=== PATIENT | male | born 1945 | race African-American/Black ===

== ENCOUNTER 2018-11-01 08:25 | Inpatient (IN) ==
[2018-10-29 17:00] LABS: Basophils % 0.2 % (0.0-0.8); Eosinophils % 0.2 % (0.00-10.9); Hematocrit 27.3 VOL% (42.0-52.0); Hemoglobin 8.5 GM/DL (14.0-18.0); Immature Granulocytes % 0.6 %; Immature Granulocytes Absolute 0.07 #; Lymphocytes # 0.6 10*3/uL (1.4-4.0); Lymphocytes % 5.3 % (21.2-54.2); Mean Corpuscular HGB Conc 31.1 GM/DL (32-36); Mean Corpuscular Volume 91.9 FL (87-102); Monocytes % 6.1 % (1.7-12.7); Neutrophils % 87.6 % (38.7-73.9); Platelet Count 224 T/CUMM (130-400); Red Blood Count 2.97 MC/CUMM (3.8-5.5); Red Cell Distribution Width 14.2 % (9.3-17.3); White Blood Count 11.5 T/CUMM (4-12)
[2018-10-29 17:16] LABS: Albumin 2.6 G/DL (3.4-5.0); Bilirubin,Total 0.4 MG/DL (0.2-1.0); Total Protein 7.5 G/DL (6.4-8.3)
[~2018-11-01 08:25] MED LIST: LACTATED RINGERS 1,000 ML IV SCH; ceFAZolin 2,000 MG in SYRINGE 1 EACH IV ONE
[2018-11-01] MEDS ORDERED: ROPIVACAINE 0.5% 30 ML VIAL ONE (10:30)
[2018-11-01] MEDS ORDERED: VANCOMYCIN 500 MG VIAL ONE (10:34)
[2018-11-01] MEDS ORDERED: fentaNYL 100 MCG/2 ML VIAL ONE (11:48)
[2018-11-01] MEDS ORDERED: LIDOCAINE MPF 2% /EPI 20 ML VIAL ONE (11:49)
[2018-11-01] MEDS ORDERED: diphenhydrAMINE CAP 25 MG CAPSULE PO PRN (12:07)
[2018-11-01] MEDS ORDERED: diphenhydrAMINE 50 MG/1 ML VIAL IV PRN (12:07)
[2018-11-01] MEDS ORDERED: ONDANSETRON 4 MG/2 ML VIAL IV PRN (12:07)
[2018-11-01] MEDS ORDERED: DEXTROSE 50% 25 GM/50 ML VIAL IV PRN (13:15)
[2018-11-01] MEDS ORDERED: GLUCAGON 1 MG VIAL IM PRN (13:15)
[2018-11-01] MEDS ORDERED: BISACODYL 5 MG TABLET PO PRN (13:15)
[2018-11-01] MEDS ORDERED: CARBOXYMETHYLCELLULOSE 1% OPH SOLN BOTH EYES PRN (13:22)
[2018-11-01] MEDS ORDERED: MIDAZOLAM 2 MG/2 ML VIAL ONE (13:33)
[2018-11-01] MEDS ORDERED: DEXTROSE 5% NACL 0.9% 500 ML IV SCH (14:00)
[2018-11-01] MEDS: hydrALAZINE 25 MG TABLET PO SCH ×2 (15:29→20:54)
[2018-11-01] MEDS: INSULIN LISPRO 100 UNIT/ML SUBCUT SCH (16:36)
[2018-11-01] MEDS: METOPROLOL TARTRATE 100 MG TABLET PO SCH (16:37)
[2018-11-01 18:21] LABS: Basophils % 0.2 % (0.0-0.8); Eosinophils % 0.4 % (0.00-10.9); Hematocrit 22.3 VOL% (42.0-52.0); Hemoglobin 7.1 GM/DL (14.0-18.0); Immature Granulocytes % 0.5 %; Immature Granulocytes Absolute 0.05 #; Lymphocytes # 0.8 10*3/uL (1.4-4.0); Lymphocytes % 8.5 % (21.2-54.2); Mean Corpuscular HGB Conc 31.8 GM/DL (32-36); Mean Corpuscular Volume 90.3 FL (87-102); Mean Platelet Volume 9.3 FL (9.6-12.0); Monocytes % 7.2 % (1.7-12.7); Neutrophils % 83.2 % (38.7-73.9); Platelet Count 193 T/CUMM (130-400); Red Blood Count 2.47 MC/CUMM (3.8-5.5); Red Cell Distribution Width 14.1 % (9.3-17.3); White Blood Count 9.4 T/CUMM (4-12)
[2018-11-01] MEDS: INSULIN GLARGINE 100 UNIT/ML SUBCUT SCH (20:26)
[2018-11-01] MEDS: glipiZIDE 10 MG TABLET PO SCH (20:26)
[2018-11-01] MEDS: EZETIMIBE 10 MG TABLET PO SCH (20:54)
[2018-11-01] MEDS: GABAPENTIN 300 MG CAPSULE PO SCH (20:55)
[2018-11-01] MEDS: ASPIRIN EC 81 MG TABLET PO SCH (20:55)
[2018-11-01] MEDS: SIMVASTATIN 20 MG TABLET PO SCH (20:55)
[2018-11-02] MEDS: fentaNYL 2 MCG/ROPIV 0.2% EPID 100 ML EPIDURAL SCH ×3 (00:30→16:15)
[2018-11-02 05:48] LABS: Basophils % 0.2 % (0.0-0.8); Eosinophils # 0.1 10*3/uL (0.0-0.87); Eosinophils % 0.6 % (0.00-10.9); Hematocrit 21.3 VOL% (42.0-52.0); Hemoglobin 6.5 GM/DL (14.0-18.0); Immature Granulocytes % 1.1 %; Lymphocytes # 0.5 10*3/uL (1.4-4.0); Lymphocytes % 5.4 % (21.2-54.2); Mean Corpuscular HGB Conc 30.5 GM/DL (32-36); Mean Corpuscular Volume 91.8 FL (87-102); Mean Platelet Volume 9.2 FL (9.6-12.0); Monocytes % 9.1 % (1.7-12.7); Neutrophils % 83.6 % (38.7-73.9); Platelet Count 164 T/CUMM (130-400); Red Blood Count 2.32 MC/CUMM (3.8-5.5); Red Cell Distribution Width 14.3 % (9.3-17.3); White Blood Count 9.3 T/CUMM (4-12)
[2018-11-02] MEDS: LEVOTHYROXINE 50 MCG TABLET PO SCH (06:04)
[2018-11-02] MEDS: ACETAMINOPHEN 325 MG TABLET PO PRN ×2 (06:04→23:35)
[2018-11-02 06:11] LABS: Osmolality,Calculated 286.4 MOS/KG (273-304)
[2018-11-02] MEDS ORDERED: ENOXAPARIN 40 MG/0.4 ML SYRINGE SUBCUT SCH (07:21)
[2018-11-02] MEDS ORDERED: NON-FORMULARY MEDICATION (Omeprazole 20 MG) PO SCH (09:00)
[2018-11-02] MEDS: INSULIN LISPRO 100 UNIT/ML SUBCUT SCH ×3 (09:00→18:16)
[2018-11-02] MEDS ORDERED: SODIUM CHLORIDE 0.9% 1,000 ML IV PRN (11:22)
[2018-11-02] MEDS: METOPROLOL TARTRATE 100 MG TABLET PO SCH ×2 (11:43→18:00)
[2018-11-02] MEDS: glipiZIDE 10 MG TABLET PO SCH ×2 (11:44→21:13)
[2018-11-02] MEDS: GABAPENTIN 300 MG CAPSULE PO SCH ×2 (11:58→21:13)
[2018-11-02] MEDS: hydrALAZINE 25 MG TABLET PO SCH ×3 (11:59→21:13)
[2018-11-02] MEDS: FUROSEMIDE 40 MG TABLET PO SCH (11:59)
[2018-11-02] MEDS: PANTOPRAZOLE 40 MG TABLET PO SCH (12:03)
[2018-11-02] MEDS: amLODIPine 10 MG TABLET PO SCH (12:07)
[2018-11-02] MEDS: DUREZOL BOTH EYES SCH (12:09)
[2018-11-02] MEDS: SIMVASTATIN 20 MG TABLET PO SCH (21:13)
[2018-11-02] MEDS: EZETIMIBE 10 MG TABLET PO SCH (21:13)
[2018-11-02] MEDS: ASPIRIN EC 81 MG TABLET PO SCH (21:13)
[2018-11-02] MEDS: INSULIN GLARGINE 100 UNIT/ML SUBCUT SCH (21:14)
[2018-11-03] MEDS: fentaNYL 2 MCG/ROPIV 0.2% EPID 100 ML EPIDURAL SCH ×2 (05:47→18:05)
[2018-11-03 05:59] LABS: Basophils % 0.3 % (0.0-0.8); Eosinophils # 0.1 10*3/uL (0.0-0.87); Hematocrit 28.8 VOL% (42.0-52.0); Hemoglobin 9.1 GM/DL (14.0-18.0); Lymphocytes # 0.8 10*3/uL (1.4-4.0); Lymphocytes % 7.8 % (21.2-54.2); Mean Corpuscular HGB Conc 31.6 GM/DL (32-36); Mean Platelet Volume 9.5 FL (9.6-12.0); Monocytes % 7.3 % (1.7-12.7); Neutrophils % 82.6 % (38.7-73.9); Platelet Count 195 T/CUMM (130-400); Red Cell Distribution Width 14.2 % (9.3-17.3); White Blood Count 10.5 T/CUMM (4-12)
[2018-11-03 06:30] LABS: Calcium 8.1 MG/DL (8.5-10.1); Osmolality,Calculated 288.8 MOS/KG (273-304)
[2018-11-03] MEDS: LEVOTHYROXINE 50 MCG TABLET PO SCH (06:47)
[2018-11-03] MEDS: INSULIN LISPRO 100 UNIT/ML SUBCUT SCH ×3 (10:01→18:12)
[2018-11-03] MEDS: GABAPENTIN 300 MG CAPSULE PO SCH ×2 (10:02→20:59)
[2018-11-03] MEDS: glipiZIDE 10 MG TABLET PO SCH ×2 (10:03→21:00)
[2018-11-03] MEDS: amLODIPine 10 MG TABLET PO SCH (10:03)
[2018-11-03] MEDS: PANTOPRAZOLE 40 MG TABLET PO SCH (10:04)
[2018-11-03] MEDS: METOPROLOL TARTRATE 100 MG TABLET PO SCH ×2 (10:04→18:10)
[2018-11-03] MEDS: hydrALAZINE 25 MG TABLET PO SCH ×3 (10:05→21:00)
[2018-11-03] MEDS: DUREZOL BOTH EYES SCH (10:07)
[2018-11-03] MEDS: FUROSEMIDE 40 MG TABLET PO SCH (10:07)
[2018-11-03] MEDS: EZETIMIBE 10 MG TABLET PO SCH (20:59)
[2018-11-03] MEDS: SIMVASTATIN 20 MG TABLET PO SCH (20:59)
[2018-11-03] MEDS: ASPIRIN EC 81 MG TABLET PO SCH (21:00)
[2018-11-03] MEDS: INSULIN GLARGINE 100 UNIT/ML SUBCUT SCH (21:00)
[2018-11-03] MEDS: ACETAMINOPHEN 325 MG TABLET PO PRN (22:31)
[2018-11-04] MEDS: ACETAMINOPHEN 325 MG TABLET PO PRN (05:02)
[2018-11-04] MEDS: fentaNYL 2 MCG/ROPIV 0.2% EPID 100 ML EPIDURAL SCH (06:34)
[2018-11-04] MEDS: LEVOTHYROXINE 50 MCG TABLET PO SCH (06:34)
[2018-11-04] MEDS: hydrALAZINE 25 MG TABLET PO SCH ×3 (10:30→20:42)
[2018-11-04] MEDS: GABAPENTIN 300 MG CAPSULE PO SCH ×2 (10:30→20:42)
[2018-11-04] MEDS: amLODIPine 10 MG TABLET PO SCH (10:30)
[2018-11-04] MEDS: METOPROLOL TARTRATE 100 MG TABLET PO SCH ×2 (10:30→17:53)
[2018-11-04] MEDS: INSULIN LISPRO 100 UNIT/ML SUBCUT SCH ×3 (10:31→17:53)
[2018-11-04] MEDS: glipiZIDE 10 MG TABLET PO SCH ×2 (10:31→20:42)
[2018-11-04] MEDS: PANTOPRAZOLE 40 MG TABLET PO SCH (10:31)
[2018-11-04] MEDS: FUROSEMIDE 40 MG TABLET PO SCH (10:32)
[2018-11-04] MEDS ORDERED: MORPHINE 10 MG/1 ML VIAL ONE (10:34)
[2018-11-04] MEDS: DUREZOL BOTH EYES SCH (10:34)
[2018-11-04] MEDS: MORPHINE 4 MG/1 ML VIAL IV PRN ×3 (10:41→21:21)
[2018-11-04] MEDS: EZETIMIBE 10 MG TABLET PO SCH (20:42)
[2018-11-04] MEDS: ASPIRIN EC 81 MG TABLET PO SCH (20:42)
[2018-11-04] MEDS: SIMVASTATIN 20 MG TABLET PO SCH (20:42)
[2018-11-04] MEDS: INSULIN GLARGINE 100 UNIT/ML SUBCUT SCH (21:07)
[2018-11-05] MEDS: MORPHINE 4 MG/1 ML VIAL IV PRN (05:12)
[2018-11-05] MEDS: LEVOTHYROXINE 50 MCG TABLET PO SCH (06:43)
[2018-11-05] MEDS: METOPROLOL TARTRATE 100 MG TABLET PO SCH ×2 (08:10→17:51)
[2018-11-05] MEDS: INSULIN LISPRO 100 UNIT/ML SUBCUT SCH ×3 (08:10→17:52)
[2018-11-05] MEDS: PANTOPRAZOLE 40 MG TABLET PO SCH (09:04)
[2018-11-05] MEDS: GABAPENTIN 300 MG CAPSULE PO SCH ×2 (09:04→20:14)
[2018-11-05] MEDS: hydrALAZINE 25 MG TABLET PO SCH ×3 (09:04→20:12)
[2018-11-05] MEDS: amLODIPine 10 MG TABLET PO SCH (09:04)
[2018-11-05] MEDS: glipiZIDE 10 MG TABLET PO SCH ×2 (09:04→20:12)
[2018-11-05] MEDS: DUREZOL BOTH EYES SCH (09:06)
[2018-11-05] MEDS: FUROSEMIDE 40 MG TABLET PO SCH (09:11)
[2018-11-05] MEDS: EZETIMIBE 10 MG TABLET PO SCH (20:12)
[2018-11-05] MEDS: SIMVASTATIN 20 MG TABLET PO SCH (20:12)
[2018-11-05] MEDS: INSULIN GLARGINE 100 UNIT/ML SUBCUT SCH (20:12)
[2018-11-05] MEDS: ASPIRIN EC 81 MG TABLET PO SCH (20:13)
[2018-11-05] MEDS: ACETAMINOPHEN 325 MG TABLET PO PRN (23:34)
[2018-11-06] MEDS: LEVOTHYROXINE 50 MCG TABLET PO SCH (06:18)
[2018-11-06] MEDS: METOPROLOL TARTRATE 100 MG TABLET PO SCH (07:44)
[2018-11-06] MEDS: INSULIN LISPRO 100 UNIT/ML SUBCUT SCH ×2 (07:44→17:28)
[2018-11-06] MEDS: glipiZIDE 10 MG TABLET PO SCH (08:54)
[2018-11-06] MEDS: GABAPENTIN 300 MG CAPSULE PO SCH (08:54)
[2018-11-06] MEDS: amLODIPine 10 MG TABLET PO SCH (08:55)
[2018-11-06] MEDS: DUREZOL BOTH EYES SCH (08:55)
[2018-11-06] MEDS: hydrALAZINE 25 MG TABLET PO SCH ×2 (08:55→16:05)
[2018-11-06] MEDS: PANTOPRAZOLE 40 MG TABLET PO SCH (08:55)
[2018-11-06] MEDS: FUROSEMIDE 40 MG TABLET PO SCH (08:55)
[2018-11-06] MEDS ORDERED: MULTIVITAMIN (INTRINSIC) CAPSULE PO SCH (09:00)
[2018-11-06 11:32] VITALS: BP 139/71
== END 2018-11-06 16:00 | DRG 240 ==
LOC: N.SDSINP 08:25 → N.3E 15:04
PROVIDERS: ADMIT Surgery; ATTEND Surgery